=== PATIENT | male | born 1935 | race Caucasian/White ===

== ENCOUNTER 2023-06-03 13:28 | Outpatient (CLI) | payer MEDICARE, SELFPAY ==
--- NOTE | ~2023-06-03 | XR_ITS ---
EXAMINATION: XR lg joint inject/asp w image DATE: 06/03/2023 14:27 INDICATION: Left frozen shoulder TECHNIQUE: A time-out was performed to verify the patient's name, date of , and procedure to b e performed. The procedure including the risks, benefits, and alternatives was discussed with the pat ient. Risks discussed included bleeding and infection. The patient understood the risks and agreed to proceed. The skin overlying the rotator cuff interval of the left glenohumeral joint was prepped an d draped in usual sterile fashion. Anesthetic was administered with 1% lidocaine subcutaneously. A 22 G needle was advanced under fluoroscopic guidance into the joint. Injection of 1 mL of Omnipaque 240 confirmed intra-articular position of the needle. Subsequently, injectate consisting of 5 mm a 4 :1 mixture of 1% lidocaine:80 mg/mL Depo-Medrol for a total dosage of 80 mg Depo-Medrol was instilled . Washout of contrast was seen confirming intra-articular administration. The needle was removed and the entry site was cleaned and dressed. There were no immediate complications. Fluoroscopy exposure time was 0.2 minutes. The total number of images was 2. Total DAP was 0.2 Gycm^2 FINDINGS: Real-time fluoroscopy demonstrates the needle and contrast in the left glenohumeral joint. Patient's pain prior to procedure:3/10. Patient's pain following the procedure: 0/10. IMPRESSION: 1. Successful left glenohumeral joint injection of local anesthetic and steroid with decrease in the patient's presenting pain. Reviewed, dictated and finalized at location A.
== END 2023-06-03 13:29 | disposition home or self-care (01) ==
LOC: ANHIMG 13:34
PROVIDERS: Visit Provider Orthopaedic Surgery
DX: M75.02 Adhesive capsulitis of left shoulder (principal)
CPT/HCPCS: 20610; 77002; J1040; Q9966

== ENCOUNTER 2023-11-13 10:47 | Outpatient (CLI) | payer MEDICARE, SELFPAY ==
--- NOTE | ~2023-11-13 | XR_ITS ---
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 The procedure including the risks, benefits, and alternatives was discussed with the pat ient. Risks discussed included bleeding and infection. The patient understood the risks and agreed to proceed. The skin overlying the rotator cuff interval of the left glenohumeral joint was prepped an d draped in usual sterile fashion. Anesthetic was administered with 1% lidocaine subcutaneously. A 22 G needle was advanced under fluoroscopic guidance into the joint. Injection of 1 mL of Omnipaque 240 confirmed intra-articular position of the needle. Subsequently, injectate consisting of 5 mm a 4 :1 mixture of 1% lidocaine: 80 mg/mL Depo-Medrol was instilled. Washout of contrast was seen confirmi ng intra-articular administration. The needle was removed and the entry site was cleaned and dressed. There were no immediate complications. Fluoroscopy exposure time was 0.2 minutes. The total number of images was 2. Total DAP was 0.335 Gycm^2 FINDINGS: Real-time fluoroscopy demonstrates the needle in the left glenohumeral joint. Patient's doug n prior to procedure:1/10. Patient's pain following the procedure: 0/10. IMPRESSION: 1. Successful left glenohumeral joint injection of local anesthetic and steroid with decrease in the patient's presenting pain. Reviewed, dictated and finalized at location A.
== END 2023-11-13 10:48 | disposition home or self-care (01) ==
LOC: ANHIMG 10:48
PROVIDERS: Visit Provider Physician Assistant Surgical
DX: M19.012 Primary osteoarthritis, left shoulder (principal)
CPT/HCPCS: 20610; 77002; J1010; Q9966

== ENCOUNTER 2024-05-25 13:47 | Outpatient (CLI) | payer MEDICARE, SELFPAY ==
--- NOTE | ~2024-05-25 | XR_ITS ---
EXAMINATION: XR lg joint inject/asp w image DATE: 05/25/2024 14:58 INDICATION: Primary osteoarthritis of the right shoulder presented with right shoulder pain TECHNIQUE: A time-out was performed to verify the patient's name, date of , and procedure to b e performed. The procedure including the risks, benefits, and alternatives was discussed with the pat ient. Risks discussed included bleeding and infection. The patient understood the risks and agreed to proceed. The skin overlying the rotator cuff interval the right glenohumeral joint was prepped and draped in usual sterile fashion. Anesthetic was administered with 1% lidocaine subcutaneously. A 22 G needle was advanced under fluoroscopic guidance into the joint. Injection of 1 mL of Omnipaque 24 0 confirmed intra-articular position of the needle. Subsequently, injectate consisting of 5 mL of a 4:1 mixture of 1% lidocaine: 80 mg/mL Depo-Medrol for a total dosage of 80 mg Depo-Medrol was instill ed. Washout of contrast was seen confirming intra-articular administration. The needle was removed an d the entry site was cleaned and dressed. There were no immediate complications. Fluoroscopy exposur e time was 0.2 minutes. The total number of images was 2. FINDINGS: Real-time fluoroscopy demonstrates the needle in the right glenohumeral joint. Patient's pa in prior to procedure:3/10. Patient's pain following the procedure: 0/10. IMPRESSION: 1. Successful right glenohumeral joint injection of local anesthetic and steroid with decrease in the patient's presenting pain. Reviewed, dictated and finalized at location A. IMPRESSION: 1. Successful right glenohumeral joint injection of local anesthetic and steroi d with decrease in the patient's presenting pain.
--- OUTSIDE RECORDS SUMMARY | 2024-05-25 15:22 | XMS_ITS ---
Author Organization [facility] [address] [employer] Address [address] [place] [address] Care Team Providers Care Latex Spooler Name Role Phone WorkMartin echols DO Primary Care Provider [phone] Active Problems Problem Noted Date Diagnosed Date Allergic rhinitis 05/07/2023 Carcinoma of prostate 05/07/2023 Overview (05/07/2023): Feb 25, 2023 Entered By: TAMELA LEPE Comment: -S/p prostate removal in 1995. 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 Denies fever or chills. Endorses chronic rhonorrhea and dry cough. CTPE w/o findings suggestive of pneumonia. - RVP negative Acute pulmonary embolism wit hout acute cor pulmonale, unspecified pulmonary embolism type 02/16/2023 Assessment & Plan (02/21/2023 2:44 PM SENIOR UX DESIGNER): Found incidentally on CT. He is currently on room air. His reports 5 days of GAUTHIER and 2-3 days of left leg swelling POLYMERIZATION ENGINEER. PERT activated: not a good candidate for thrombectomy given small clot burden and hemodynamic stability; recommend conservative management. Neurosurgery consulted; recommend Neuro consultation for risk assessment for initiating anticoagulation - Neuro consult recs: Brain MRI, see below. Discussed in detail with neurology and neurosurgery, agreed that benefits of anticoagulation outweighed risks, in the setting of multiple PEs and DVTs. Started on heparin gtt. - BLE venous duplex US: bilateral acute DVT - Brain MRI: Right parietal craniotomy and hematoma evacuation with evolving blood products. Right occipital gyral and punctate areas of diffusion restriction in the bilateral cerebellum compatible with acute to subacute infarcts. Scattered parieto-occipital predominant microhemorrhages and siderosis are noted, suggestive of amyloid angiopathy. 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 He reports mild left sided weakness and decreased left sided vision after his ICH. - fall precautions Low back pain 2023 Muscle weakness (generalized) 2023 Nontraumatic intracerebral hemorrhage, unspecifi ed 2023 Assessment & Plan (02/17/2023 5:26 PM SENIOR UX DESIGNER): - see AC discussion as elsewhere Other symptoms and signs inv olving cognitive functions following cerebral infarction 2023 Pain in left hip 2023 Syncope and collapse 2023 Weakness 2023 Intracranial hemorrhage 12/07/2022 Osteoarthritis of left knee 11/26/2022 Left chronic serous otitis media 08/25/2022 Sensorineural hearing loss (SNHL) of both ears 0 08/25/2022 Arthralgia of right knee 07/03/2021 Trochanteric bursitis of left hip 07/03/2021 Trochanteric bursitis of right hip 04/02/2021 Mixed hyperlipidemia 03/15/2019 Capsulitis of left foot 12/15/2017 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 Plan: - lisinopril 20 mg nightly - lisinopril 5 mg qAM PRN for SBP > 160 Mitral valve prolapse 04/14/2006 Overview (2023): MILD/ SEEN ON ECHO 03/14/1997 Current Treatment and Therapy Plans No current plan information found. Past Treatment and Therapy Plans No past plan information found. Lifetime Dose Tracking * Chemical Lifetime Dose Automatic Entry Manual Entr y Fluoro Time 2.8 minutes 2.8 minutes 0 minutes Air kerma at the reference point (Ka,r) 9.4 mGy 9 .4 mGy 0 mGy DLP 5,098 mGycm 5,098 mGycm 0 mGycm
--- OUTSIDE RECORDS SUMMARY | 2024-05-25 15:22 | XMS_ITS | Referral Summary ---
Author Organization [facility] [address] [employer] Address [address] [place] [address] Care Team Providers Care Senior Linux Systems Administrator Name Role Phone Martin Olivares DO Primary Care Provider [phone] Allergies Active Allergy Reactions Criticality Noted Date Comments Enalapril Other (See comments),Unknown Low 08/03/2003 Losartan Dizziness,Other (See comments) Low 04/14/2006 Losartan-Hydrochlorothiazid e Other (See comments) Low 02/02/2023 Medications acetaminophen (TYLENOL) 325 mg tablet Take 2 tablets (650 mg total) by mouth every 6 (six) hours as needed Active lisinopriL (PRINIVIL,ZESTR IL) 30 mg tablet Take 0.5 tablets (15 mg total) by mouth nightly 3 Active docusate sodium (COLACE) 100 mg capsuleIndicati ons:constipatio n,Stool Softener Take 1 capsule (100 mg total) by mouth 2 (two) times a day 3 Active lisinopriL (PRINIVIL,ZESTR IL) 5 mg tablet Take 2 tablets (10 mg total) by mouth daily as needed (takes in AM if BPs are high) Active apixaban (ELIQUIS) 2.5 mg tablet Take 1 tablet (2.5 mg total) by mouth 2 (two) times a day 60 tablet 3 Active meclizine (ANTIVERT) 25 mg tablet Take 1 tablet (25 mg total) by mouth 3 (three) times a day as needed for dizziness Active fluticasone (VERAMYST) 27.5 mcg/actuation nasal sprayIndication s:Allergic Rhinitis Administer 2 sprays into each nostril as needed Active metoprolol tartrate (LOPRESSOR) 25 mg immediate release tablet Take 0.5 tablets (12.5 mg total) by mouth 2 (two) times a day 4 Active ketorolac (ACULAR) 0.5 % ophthalmic solution Administer 1 drop into affected eye(s) 3 (three) times a day 4 Active prednisoLONE acetate (PRED FORTE) 1 % ophthalmic suspension Administer 1 drop into affected eye(s) 3 (three) times a day 4 Active Active Problems Problem Noted Date Diagnosed Date [...] Assessment & Plan (02/18/2023 11:10 AM SENIOR RADIATION THERAPIST): Present for 2 days STAGE MANAGER. Denies fever or chills. Endorses chronic rhonorrhea and dry cough. CTPE w/o findings suggestive of pneumonia. - RVP negative Acute pulmonary embolism wit hout acute cor pulmonale, unspecified pulmonary embolism type 02/16/2023 Assessment & Plan (02/21/2023 2:44 PM SENIOR RADIATION THERAPIST): Found incidentally on CT. He is currently on room air. His reports 5 days of GUATHIER and 2-3 days of left leg swelling STAGE MANAGER. PERT activated: not a good candidate for [...] health PT/OT -> patient's son, head of at [place], declined - continue heparin gtt, monitor for [...] Assessment & Plan (02/17/2023 5:26 PM SENIOR RADIATION THERAPIST): Normally ambulates w/ a walker. He reports mild left sided weakness and decreased left sided vision after his ICH. - fall precautions Low back pain 2023 Muscle weakness (generalized) 2023 Nontraumatic intracerebral hemorrhage, unspecifi ed 2023 Assessment & Plan (02/17/2023 5:26 PM SENIOR RADIATION THERAPIST): - see AC discussion as elsewhere Other [...] Assessment & Plan (02/19/2023 11:42 AM SENIOR RADIATION THERAPIST): Per pt's , he takes lisinopril 20 mg at night and 5 mg in the AM as needed for high BP. Plan: - lisinopril 20 mg nightly - lisinopril 5 mg qAM PRN for SBP > 160 Mitral valve prolapse 04/14/2006 Overview (2023): MILD/ SEEN ON ECHO 03/14/1997 Immunizations Immunization Administration Dates Next Due Influenza, Quadrivalent, Hig h Dose, Preservative Free, Intrr 12/23/2022,12/16/2021,12/28/2020 Influenza, Quadrivalent, Spl it, Preservative Free, Intramuscular 01/03/2015,01/03/2014 Influenza, Trivalent, High D ose, Split, Preservative Free, Intramuscular 01/11/2019 Influenza, Unspecified 01/13/2020,2017,01/03/2015,01/03,01/11/2013,12/30/2011 Moderna SARS-CoV-2 Monovalen t Vaccination (12+ YRS) 12/12/2021 Pneumococcal Conjugate PCV 13 01/03/2015 Pneumococcal Conjugate Pcv20 12/27/2022 Pneumococcal Polysaccharide PPV23 02/16/2018 Tdap 01/12/2023 ZOSTER Recombinant 02/25/2023 Social History Tobacco Use Types Packs/Day Years Used Date Smoking Tobacco: Never Smokeless Tobacco: Never Tobacco Cessation:Counseling Given: Not Answered AUDIT-C Answer Date Recorded Q1: How often do you have a drink containing alc ohol? Monthly or less 2023 Q2: How many drinks containi ng alcohol do you have on a typical day when you are drinking? 1 or 2 2023 Q3: How often do you have si x or more drinks on one occasion? Never 2023 Personal Safety Answer Date Recorded Have you ever been in or are you currently in a harmful physical or emotional relationship or is someone making you feel afraid or unsafe? Denies 02/16/2023 Sex and Gender Information Value Date Recorded Sex Assigned at Not on file Legal Sex Male 7:16 PM SENIOR RADIATION THERAPIST Gender Identity Not on file Sexual Orientation Not on file Last Filed Vital Signs Vital Sign Reading Time Taken Comments Blood Pressure 160/86 11/03/2023 11:02 AM CDT Pulse 66 11/03/2023 11:02 AM CDT Temperature 36.4 C (97.5 F) 02/21/2023 8:35 AM SENIOR RADIATION THERAPIST Respiratory Rate 18 03/26/2023 9:34 AM SENIOR RADIATION THERAPIST Oxygen Saturation 97% 02/21/2023 8:35 AM SENIOR RADIATION THERAPIST Inhaled Oxygen Concentration - - Weight 77.1 kg (170 lb) 11/03/2023 11:02 AM CDT Height 175.3 cm (5' 9 ) 11/03/2023 11:02 AM CDT Body Mass Index 25.1 11/03/2023 11:02 AM CDT Plan of Treatment Not on file Medical Devices Implanted Type Area Land Inspector Device Identifier Shelf Expiration Date Model / Serial / Lot Nani Craniomaxillofac ial Duramatrix-Onlay Plus 2x2in Regeneration Membrane Patch Dural [id number] - [id number] Implanted:Qty: 1 on 12/08/2022 by Tejinder Foreman MD at [facility] Right: Cranial Nani Craniomaxillofacia l [id number] 06/06/2025 [id number] / / [id number] [place] Craniomaxillofac ial Un3 1.5mm 4mm Self Drill Craniomaxillofac ial Screw Bone [id number] - [id number] Implanted:Qty: 13 on 12/08/2022 by Tejinder Foreman MD at [facility] Right: Cranial Nani Craniomaxillofacia l 12/08/2024 [id number] / / [place] Craniomaxillofac ial Williams Neuro Iii 10mm Tab Craniomaxillofac ial Low Profile [id number] - [id number] Implanted:Qty: 1 on 12/08/2022 by Tejinder Foreman MD at [facility] Right: Cranial Nani Craniomaxillofacia l 12/08/2024 [id number] / / [place] Craniomaxillofac ial 2x2 Hole Box Tab Large Plate Bone [id number] - [id number] Implanted:Qty: 2 on 12/08/2022 by Tejinder Foreman MD at [facility] Right: Cranial [place] Craniomaxillofacia l 12/08/2024 [id number] / / Insurance COMMERCIAL GENERIC MEDICARE [facility] MEDICARE COMMERCIAL GENERIC [place] [facility] Advance Directives For more information, please contact: [phone] Documents on File Type Date Recorded Patient Pyridine Operator Expl anation ADVANCE DIRECTIVE 01/08/2023 12:17 AM ADVA NCE DIRECTIVE ADVANCE DIRECTIVE 12/11/2022 11:12 PM ADVA NCE DIRECTIVE * Full Code (Latest Code Status on File) Date Activated Date Inactivated Comments 02/17/2023 5:17 PM 02/21/2023 5:14 PM * LIMITED - No CPR Date Activated Date Inactivated Comments 12/07/2022 9:34 PM 12/17/2022 4:47 PM Question Answer Comments Provide aggressive medical m anagement before a full cardiopulmonary arrest occurs. Use antibiotics, IV Fluids, and medical treatment unless specifically selected below: No intubation Care Teams Senior Linux Systems Administrator Relationship Specialty Start Date End Date Martin Olivares DO [address] [place] [address] PCP - General Family Medicine 08/06/22
--- OUTSIDE RECORDS SUMMARY | 2024-05-25 15:22 | XMS_ITS | Clinical Summary ---
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 Denies fever or chills. Endorses chronic rhonorrhea and dry cough. CTPE w/o findings suggestive of pneumonia. - RVP negative Acute pulmonary embolism wit hout acute cor pulmonale, unspecified pulmonary embolism type 02/16/2023 Assessment & Plan (02/21/2023 2:44 PM MIDDLE SCHOOL HUMANITIES TEACHER): Found incidentally on CT. He is currently on room air. His reports 5 days of GAUTHIER and 2-3 days of left leg swelling FRONT FACER. PERT activated: not a good candidate for [...] PT/OT -> patient's son, head of at [place], declined - continue heparin gtt, monitor for [...] 2023 Assessment & Plan (02/17/2023 5:26 PM MIDDLE SCHOOL HUMANITIES TEACHER): Normally ambulates w/ a walker. He reports mild left sided weakness and decreased left sided vision after his ICH. - fall precautions Low back pain 2023 Muscle weakness (generalized) 2023 Nontraumatic intracerebral hemorrhage, unspecifi ed 2023 Assessment & Plan (02/17/2023 5:26 PM MIDDLE SCHOOL HUMANITIES TEACHER): - see AC discussion as elsewhere Other [...] 04/14/2006 Assessment & Plan (02/19/2023 11:42 AM MIDDLE SCHOOL HUMANITIES TEACHER): Per pt's , he takes lisinopril 20 [...] PPV23 02/16/2018 Tdap 01/12/2023 ZOSTER Recombinant 02/25/2023 Surgical History Surgery Date Site/Laterality Comments PROSTATE SURGERY Medical History Medical History Date Comments Allergic rhinitis Cataract Hypertension Family History Medical History Relation Name Comments Hypertension Father Cancer Mother Hypertension Mother Hypertension Sister Relation Name Status Comments Father Mother Sister Social History Tobacco Use Types Packs/Day Years [...] on file Legal Sex Male 7:16 PM MIDDLE SCHOOL HUMANITIES TEACHER Gender Identity Not on file Sexual Orientation Not on file Obstetrics History Last Filed Vital Signs Vital Sign Reading Time Taken Comments Blood Pressure 160/86 11/03/2023 11:02 AM CDT Pulse 66 11/03/2023 11:02 AM CDT Temperature 36.4 C (97.5 F) 02/21/2023 8:35 AM MIDDLE SCHOOL HUMANITIES TEACHER Respiratory Rate 18 03/26/2023 9:34 AM MIDDLE SCHOOL HUMANITIES TEACHER Oxygen Saturation 97% 02/21/2023 8:35 AM MIDDLE SCHOOL HUMANITIES TEACHER Inhaled Oxygen Concentration - - Weight 77.1 kg (170 lb) 11/03/2023 11:02 AM CDT Height 175.3 cm (5' 9 ) 11/03/2023 11:02 AM CDT Body Mass Index 25.1 11/03/2023 11:02 AM CDT Plan of Treatment Health Maintenance Due Date Last Done Comments Depression Screening 1935 Hepatitis B Screening 1953 Well Visit 65+ 02/06/2000 Covid-19 Vaccine (2023-2 5 season) 2023 12/22/2022, 12/12/2021, 12/12/2021, Additional history exists Influenza Vaccine (#1) 2023 , 12/16/2021, 12/28/2020, Additional history exists Fall Risk Assessment 02/22/2024 02/21/2023 DTaP/Tdap/Td Vaccine (2 - Td or Tdap) 01/12/2033 01/12/2023 Pneumococcal vaccine 65+ Completed 023, 02/16/2018, 01/03/2015 Zoster Vaccine Completed 08/21/2023, 02/25/2023 Medical Devices Implanted Type Area Skills Trainer Device Identifier Shelf Expiration Date Model / Serial / Lot [place] Craniomaxillofac ial Duramatrix-Onlay Plus 2x2in Regeneration Membrane Patch Dural Dmop22 - [id number] Implanted:Qty: 1 on 12/08/2022 by Tejinder Foreman MD at [facility] Right: Cranial Nani Craniomaxillofacia l [id number] 06/06/2025 DMOP22 / / [id number] [place]ani Craniomaxillofac ial Un3 1.5mm 4mm Self Drill Craniomaxillofac ial Screw Bone [id number] - [id number] Implanted:Qty: 13 on 12/08/2022 by Tejinder Foreman MD at [facility] Right: Cranial [place] Craniomaxillofacia l 12/08/2024 [id number] / / [place] Craniomaxillofac ial [place] Neuro Iii 10mm Tab Craniomaxillofac ial Low Profile [id number] - [id number] Implanted:Qty: 1 on 12/08/2022 by Tejinder Foreman MD at [facility] Right: Cranial Nani Craniomaxillofacia l 12/08/2024 [id number] / / [place] Craniomaxillofac ial 2x2 Hole Box Tab Large Plate Bone [id number] - [id number] Implanted:Qty: 2 on 12/08/2022 by Tejinder Foreman MD at [facility] Right: Cranial [place] Craniomaxillofacia l 12/08/2024 [id number] / / Insurance COMMERCIAL GENERIC MEDICARE [facility] MEDICARE COMMERCIAL GENERIC [facility] Advance Directives For more information, please contact: [phone] Documents on File Type Date Recorded Patient Manager Neonatal Expl anation ADVANCE DIRECTIVE 01/08/2023 12:17 AM [...] specifically selected below: No intubation Care Teams Cook Dessert Relationship Specialty Start Date End Date Martin Olivares DO [address] [facility] [address] [place] [address] PCP - General Family Medicine 08/06/22
--- OUTSIDE RECORDS SUMMARY | 2024-05-25 15:22 | XMS_ITS | Data Portability ---
Author Organization [place] - [facility], Main Office Address [address] [place] [address] Care Team Providers Care Underwriting Support Specialist Name Role Phone WORKJAY MILLER Primary Care Provider WORKMANJAY Referring Provider [phone] Assessment Encounter Date Assessment Date Assessment LastModified by Organization Details LastModified Time 09/19/2022 09/19/2022 HPI: Patient returns. He is here wanting cortisone injection right knee and had right lateral hip. He had injections in April this year. He is getting ready to go on an extended trip to [place] for 19 days he has been having some soreness in both areas. [employer] walks work well for him. He has a known medial meniscus tear in the right knee as well some early osteoarthritis the patellofemoral joint. 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 Physical exam: 87-year-old male very alert pleasant. He appears younger than his stated age. He has moderate pain with patellofemoral grind in the right knee. Range of motion is from 0-135 degrees. Mild tenderness over the medial joint line. He has moderate tenderness over the lateral hip. He has normal strength with abductor testing lateral position. ChloraPrep was used on skin 20 mg Kenalog and 3 cc of 0.5% ropivacaine was injected into the right knee and right trochanteric bursa. 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 Shots have worked well for him. He has been taking ibuprofen 400 mg once a day intermittently and I have recommended he may want to take this on a more regular basis talked about increasing it twice a day to see if this will help with his symptoms. He has been getting some anterior knee pain in the left knee and asked about getting an injection before his trip. We will schedule see him back next at that time we will do an injection in the left knee. 20 minutes was spent in treatment patient more than half this bwbk-rd-jqab conversation [email or web address] Not available 09/19/2022 13:26:58 11/26/2022 11/26/2022 HPI: Patient returns. He came in today is left knee has been bothering him. He went on an extended trip to [place] do lot of walking. He was walking up a hill and he started to have pain in the anterior lateral aspect the knee. He has had continued pain since then. This has been going on for about a month. Chief complaint is he has pain getting up from seated position or pain going up a step. I and again he points to the anterior lateral aspect of the knee where he feels it. He has been taking some Tylenol without any improvement of his symptoms. Patient has had previous x-rays of the left knee which shows some very mild narrowing of the medial compartment. He has a history of known patellofemoral irritability of the right knee and most likely some early patellofemoral osteoarthritis in the right. He came in today requesting cortisone injection left knee. Physical exam: Patient walking relatively well. He has trace effusion left knee. Range of motion is from 0-140 degrees. He has mild tenderness to palpation of the anterior lateral joint space. He also has hmfs-hq-pcrjhswh pain with palpation of the lateral border of the patella. Hip range of motion is full without discomfort. There is no medial joint line tenderness. No swelling in either lower extremity. ChloraPrep was used on skin 20 mg Kenalog and 3 cc of 0.5% ropivacaine was injected into the left knee. Risk of infection discussed. Impression: 87-year-old male who has irritability in the left knee from a climbing an incline. Symptoms seem to correlate to the patellofemoral joint and anterior lateral joint line. He is 87 and again he wished to have a cortisone injection in the knee which I think is reasonable try to get things quiet down. He takes minimal medications we also talked about amlf-daf-szbxrrv anti-inflammatori es which he can experiment with if he feels he needs him. Hopefully the shot will help. I will see him back as needed. 20 minutes was spent in treatment patient more than half of this in hdxm-ih-cjsa conversation [email or web address] Not available 11/26/2022 14:06:34 05/20/2023 05/20/2023 HPI: Patient returns. Last time I saw him was in November of last year at that time he had a cortisone injection in the right knee. 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 At this point he is on Eliquis. He has regained most of the function back in his left side. He still has some issues with his peripheral vision. Patient's chief complaint with his left shoulder is that it has gotten very stiff and very painful with motion as well as use. They have been trying to do therapy on this but he is finding it difficult because it is painful for them to try to work on range of motion exercises. He did regain sensation and motor function to both upper and lower extremity. He still has some issues with his balance. Patient is also complaining of pain in the right anterior knee. This is commonly where he felt the prior when I have given him injections. This has gotten worse since the stroke and I think that is because this was his strong leg particularly with getting up from seated position and is most likely overload the patellofemoral joint causing his symptoms. At this point patient is unable take anti-inflammatori es because he is on Eliquis. Physical exam: 88-year-old male alert pleasant. He is talking very well today. He has active elevation left shoulder to 110 external rotation 50 and internal rotation is to the PSIS. He has pain with range of motion. No effusion about the shoulder no tenderness about shoulder. He has good strength with external rotation as well as abduction. His right knee he has moderate pain with patellofemoral grind. Minimal effusion in the knee. Range of motion is from 7-135 degrees. He has no increased swelling in either lower extremity. He is wearing René does today. After alcohol prep 20 mg Kenalog and 3 cc of 0.5% ropivacaine was injected into the right knee. Impression: Patient has anterior knee pain right knee again I think that is because from his recovery is right leg was his strong leg and he relied on it to get up from seated positions which overload of the patellofemoral joint. He also has a history of patellofemoral pain in that knee, shots have always worked well for him and he wished to have 1 today. 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 I have recommended having a fluoroscopic guided injection into the shoulder joint which hopefully will help with his symptoms. He is in therapy at this point I recommend that he stop doing any therapy on the shoulder until the injection gives him some good benefit from his pain and then once this has been achieved they should work on stretching out to get his full range of motion back. He has no arthritic changes in the left shoulder joint and he has good strength so I think his rotator cuff is intact. I have given him the instruction order sheet for frozen shoulder to give to the therapist so they know to work on stretching exercises. I have given him the order for the injection in the shoulder to be done at the hospital under fluoroscopic guidance. I will see him back in a month for re-evaluation. 40 minutes was spent in treatment patient more than half of this in tgbb-mc-jstf conversation [email or web address] Not available 05/20/2023 16:09:45 06/22/2023 06/22/2023 HPI: Patient returns. He is here for follow-up of his left frozen shoulder. He had the cortisone injection under fluoroscopic guidance as well as physical therapy. He has noted good improvement of his symptoms in the shoulder. He still has pain with range of motion particularly at the full stretching. He has no rest pain at this point. He continues doing his exercises at home on a daily basis. Patient has 2nd complaint is that he has been having some anterior knee pain in the left knee. This started several weeks ago. He is pain getting up from seated position. His states that he does complain of left knee being problematic on a regular basis. He has same type of anterior knee pain on the right that I have seen him for multiple times in the past. Cortisone injections seem to work well. Patient would like to have a shot in the left knee today. Physical exam 88-year-old male he has active elevation left shoulder to 135 external rotation is to 60 internal rotation is to T12. He has protracted shoulders. He has pain at full elevation and external rotation. There has no pain with internal rotation. His left knee has moderate pain patellofemoral grind. He is mild tenderness over the anterior medial joint line. No definite effusion in the knee. Range motion is from 0-135 degrees. After ChloraPrep was used on skin 20 mg Kenalog and 3 cc of 0.5% ropivacaine was injected into the left knee. Impression: Patient's left frozen shoulder is improving. I encouraged him to continue to work on his home exercise program to get full function and motion back in the shoulder without any discomfort. I discussed with his as well that if he stops before he has full resolution of the frozen shoulder than the frozen shoulder may recur and he will have to go through this process again. With regard to the knee he has some anterior knee pain and this is probably his inability to use left shoulder to push up from a seated position which would overload the knee cap. Shots have always worked well for the right knee hopefully will work equally as well for the left. At this point we will see him back as needed. 20 minutes was spent treatment patient more than half of this in gbbq-zw-axln conversation [email or web address] Not available 06/22/2023 15:38:46 Plan of Treatment Reminders Order Date Submit Date Provider Last Modified By Organization Details Last Modified Time Details Appointments None recorded. Lab None recorded. Referral None recorded. Procedures injection/ aspiration joint/burs a (PROC) - in office procedure, administer ed by provider 2023 024 [email or web address] In-Office Order, Internal Use Only DO Not Attach Compendium DO Not Attach Compendium, Do Not Delete/merge, [id number] 15:10:45 injection/ aspiration joint/burs a (PROC) - in office procedure, administer ed by provider 2023 024 In-Office Order, Internal Use Only DO Not Attach Compendium DO Not Attach Compendium, Do Not Delete/merge, [id number] 4 15:09:17 injection/ aspiration joint/burs a (PROC) - in office procedure, administer ed by provider 2022 023 [email or web address] In-Office Order, Internal Use Only DO Not Attach Compendium DO Not Attach Compendium, Do Not Delete/merge, [id number] 3 13:48:15 injection/ aspiration joint/burs a (PROC) - in office procedure, administer ed by provider 2022 023 [email or web address] In-Office Order, Internal Use Only DO Not Attach Compendium DO Not Attach Compendium, Do Not Delete/merge, [id number] 3 12:04:45 injection/ aspiration joint/burs a (PROC) - in office procedure, administer ed by provider 2022 023 In-Office Order, Internal Use Only DO Not Attach Compendium DO Not Attach Compendium, Do Not Delete/merge, [id number] 3 12:04:45 Surgeries None recorded. Imaging XR, shoulder, 2 or more view 2023 024 [email or web address] [facility] [place], [address], [place], [address], 4 16:11:07 XR, knee 2023 024 [email or web address] [facility] [place], [address], [place], [address], 4 16:11:07 Medication Orders Marcaine (PF) 0.5 % (5 mg/mL) injection solution [address] [facility], [address] [place] [address], [id number], 4 15:28:45 Kenalog 10 mg/mL suspension for injection [address] [facility], [address] [place] [address], [id number], 4 15:28:45 Kenalog 10 mg/mL suspension for injection [address] [facility], [address] [place] [address], [id number], 4 16:10:04 ropivacain e (PF) 5 mg/mL (0.5 %) injection solution [address] [facility] [address] [facility], [address], [place], [place], [id number], 4 16:10:04 Kenalog 10 mg/mL suspension for injection [address] [facility], [address], [place], [place], [id number], 4 14:20:35 ropivacain e (PF) 5 mg/mL (0.5 %) injection solution [address] [facility], [address], [place], [place], [id number], 4 14:22:00 Kenalog 10 mg/mL suspension for injection [address] [facility], [address], [place], [place], [id number], 4 14:20:35 ropivacain e (PF) 5 mg/mL (0.5 %) injection solution [address] [facility], [address], [place], [place], [id number], 4 14:22:00 Kenalog 10 mg/mL suspension for injection [address] [facility] [address] [facility], [address] [place] [place], [id number], 4 14:20:35 ropivacain e (PF) 5 mg/mL (0.5 %) injection solution [address] [facility] [address] [facility], [address], [place], [place], [id number], 4 14:22:00 Patient TargetsNo targets recorded. Patient InstructionsNo instructions recorded. Reason for Referral None Reported. Results Created Date Observation Date Name Description Value Unit Range Abnormal Flag Note LastModifiedBy Organization Detail LastModifiedTime 04/30/19 23 04/30/2022 XR, knee, 3 view No observ ation record ed. [id number] [facility] [place] [address], [place], [address], 05/07/2022 23:05:27 05/20/19 24 XR, knee No observ ation record ed. [email or web address] [facility] [place] [address], [place], [address], 05/20/2023 16:05:16 05/20/19 24 XR, shoul jimmie, 2 or more view No observ ation record ed. [email or web address] [facility] [place] [address], [place], [address], 05/20/2023 16:05:04 06/03/19 24 06/03/2023 injec tion/ aspir ation joint /burs a (PROC ) No observ ation record ed. In-Office Order Internal Use Only DO Not Attach Compendium DO Not Attach Compendium, Do Not Delete/merge, [id number] 06/04/2023 08:19:06 Result Notes None recorded. Problems Name Problem SNOMED Code Status Onset Date Resolution Date Notes Provider Name and Address Organization Details Recorded Time Trochanter ic bursitis of left hip 3818938635969 03 Active 2021 Not Available [facility] 3 23:03:25 Trochanter ic bursitis of right hip 4829199668645 00 Active 2021 Not Available [facility] 3 23:03:25 Osteoarthr itis of right knee joint 2262656438354 00 Active 2022 Not Available [facility] 3 23:03:25 Pain of right knee joint 4425425222754 00 Active 2021 Not Available [facility] 3 23:03:25 Pain in right hip joint 2356247611517 02 Active 2022 Terrie Liz RMJuan Carlos null, [facility] [employer] [facility] 3 12:02:45 Osteoarthr itis of left knee joint 3661115543194 09 Active 2022 Terrie Liz RMJuan Carlos null, [facility] 3 13:46:47 Pain of left shoulder joint 2588852791764 9109 Active 2023 FLOR Billy, [facility] [employer] [facility] 4 14:27:00 Problem Notes None recorded. Procedures Surgical History Date Name Laterality Status Provider Name and Address Organization Details Recorded Time Prostate completed Not Available [facility] 23:02:35 Imaging Results Imaging Date Name Status LastModified by [email or web address] [facility] Details LastModified Time 04/30/2022 XR, knee, 3 view completed [id number] [facility] [place] [address] [facility] [address], [place], [address], 05/07/2022 23:05:27 05/20/2023 XR, knee completed [email or web address] [facility] [place] [address] [facility] [address] [address], [place], [address], 05/20/2023 16:05:16 05/20/2023 XR, shoulder, 2 or more view completed [email or web address] [facility] [place] [address] [facility] [address], [place], [address], 05/20/2023 16:05:04 06/03/2023 injection/ aspiration joint/burs a (PROC) completed [email or web address] In-Office Order Internal Use Only DO Not Attach Compendium DO Not Attach Compendium, Do Not Delete/merge, [id number] 06/04/2023 08:19:06 Procedure Notes None recorded. Medical Equipment None Reported. Allergies Allergen ID Allergen Name Allergen Category Reaction Reaction Severity Criticality Documentation Date Start Date Code Code System Note Provider Name and Address Organization Details Recorded Time 65345 hydrochlo rothiazid e / losartan medicatio n Not available Not available Not available 05/07/2022 25698 9 RxNorm faint Madeleine Carri, CLIMATOLOGY PROFESSOR null, [place] - [facility] 4 14:20:04 73117 Cozaar medicatio n Not available Not available Not available 05/07/2022 36946 8 RxNorm faint Madeleine Carri, CLIMATOLOGY PROFESSOR null, [place] - [facility] 4 14:19:58 Medications Name Sig Start Date Stop Date Status Note LastModified by Organization Details LastModified Time iheal covid-19 rapid test 05/19 completed Not Available Not Available Not Available atorvasta tin 10 mg tablet 10/31 completed Not Available Not Available Not Available azithromy esteban 250 mg tablet 04/30 completed Not Available Not Available Not Available metoprolo l succinate ER 50 mg tablet,ex tended release 24 hr 10/04 completed Not Available Not Available Not Available lisinopri l 20 mg tablet Take 1 tablet every day by oral route at bedtime. active Not Available Not Available No t Available bupivacai ne HCl 0.5 % (5 mg/mL) injection solution In office injectio n administ ered by the provider 04/30 completed Not Available Not Available Not Available amlodipin e 5 mg tablet 09/19 completed Not Available Not Available Not Available ofloxacin 0.3 % ear drops active Not Available Not Available Not Available Kenalog 10 mg/mL suspensio n for injection Take 20 mg by injectio n route. 2023 active ND: [phone] Not Available Not Available Not Available promethaz ine-pheny lephrine- codeine 6.25 mg-5 mg-10 mg/5 mL oral syrup Take 5 mL every 4 hours by oral route. 09/19 completed Not Available Not Available Not Available lisinopri l 10 mg tablet Take 1 tablet every day by oral route. active take one tab or 1/2 tab every morning Not Available Not Available Not Available prednison e 50 mg tablet 04/30 completed Not Available Not Available Not Available lisinopri l 30 mg tablet 05/19 completed Not Available Not Available Not Available lisinopri l 5 mg tablet 10/04 completed Not Available Not Available Not Available levofloxa esteban 500 mg tablet 07/25 completed Not Available Not Available Not Available lisinopri l 40 mg tablet 05/19 completed Not Available Not Available Not Available fluoxetin e 20 mg capsule Take 1 capsule every day by oral route. active Not Available Not Available No t Available Marcaine (PF) 0.5 % (5 mg/mL) injection solution Take 15 mg by injectio n route. 2023 active Not Available Not Available Not Avai lable chlorhexi dine gluconate 0.12 % mouthwash 07/25 completed Not Available Not Available Not Available acetamino phen 2 or 3 times daily active Not Available Not Available No t Available aspirin 10/04 completed Not Available Not Available Not Available lidocaine (PF) 10 mg/mL (1 %) injection solution In office injectio n administ ered by the provider active [facility]: [phone] 6 Not Available Not Available Not Available lidocaine (PF) 5 mg/mL (0.5 %) injection solution In office injectio n administ ered by the provider active Not Available Not Available No t Available melatonin 5 mg capsule Take by oral route. active Not Available Not Available No t Available ropivacai ne (PF) 5 mg/mL (0.5 %) injection solution Take 3 mL by injectio n route. 2023 active [facility] 55138-08 4- Not Available Not Available Not Available Eliquis 2.5 mg tablet Take 1 tablet twice a day by oral route. active Not Available Not Available No t Available Vitals Date Recorded Body height Provider Name an d Address Organization Details Last Updated DateTime 04/30/2022 175.26 cm Not Available [facility] 23:02:43 Date Recorded Body height Provider Name an d Address Organization Details Last Updated DateTime 09/19/2022 175.26 cm ANNETTE Cannon [facility] [employer] 09/19/2022 12:01:59 Date Recorded Body height Provider Name an d Address Organization Details Last Updated DateTime 11/26/2022 175.26 cm ANNETTE Cannon [facility] [employer] [facility] 11/26/2022 13:46:01 Date Recorded Body height Body mass index (BMI) Body weight Provider Name and Address Organization Details Last Updated DateTime 05/20/2023 175.26 cm 24.7 kg/m2 78088.93 g Madeleine [facility] [employer] [facility] 05/20/2023 14:28:11 Date Recorded Body height Provider Name an d Address Organization Details Last Updated DateTime 06/22/2023 175.26 cm Lorri Mason [facility] 06/22/2023 14:45:12 Social History Question Answer Notes LastModified by Organizat ion Details LastModified Time Tobacco Smoking Status Never Smoker Not Available [facility] 05/07/2022 23:02:14 What Is Your Level Of Alcohol Consumption? None Information not available 05/20/2023 Sex: Unknown Functional Status None recorded. Mental Status None recorded. Family History Relationship Description Onset Age of this Age Resolved Age Notes LastModified by Organization Details LastModified Time Mother Family history of malignant neoplasm [id number] Not available 05/07/2022 23:02:36 Father Hypertensive disorder [email or web address] Not available 2023 14:24:11 Father Heart disease [email or web address] Not available 2023 14:24:02 Father Kidney disease [email or web address] Not available 2023 14:24:52 Mother Hypertensive disorder [email or web address] Not available 2023 14:24:15 Unspecified Relation Diabetes mellitus 2 childr en Not available 05/20/2023 14:24:42 Medical History Condition Response BLINDNESS N KIDNEY STONES N MRSA N CARPAL TUNNEL SYNDROME N LUNG DISEASE/DISORDER N HISTORY OF DRUG ABUSE N RADIATION / CHEMOTHERAPY N COPD N SPORTS INJURY N ANKLE PAIN N BLOOD DISEASES N SCHIZOPHRENIA N SHOULDER PAIN N BOWEL PROBLEMS N DEPRESSION (INCLUDING POST ) N STROKE/TIA Y ULCERS N KNEE PAIN N BENIGN PROSTATIC HYPERPLASIA N OBESITY N GERD/NAUSEA N ANEURYSM N URINARY/BLADDER/KIDNEY PROBLEMS N CORONARY ARTERY DISEASE (CAD) N ADDICTION CONCERNS N USE OF BLOOD THINNERS Y SKIN PROBLEMS N EMPHYSEMA N MUSCLE,JOINT OR BONE PROBLEMS N DVT N STOMACH ULCERS N BLOOD CLOTS Y USE OF NSAIDS N CONCUSSION OR SPINAL TRAUMA N NEUROPATHY N AIDS/HIV N FRACTURES N HYPERTENSION Y ELBOW PAIN N TOURETTE'S N Metal allergy N ANXIETY DISORDER N BLOOD TRANSFUSION N ANEMIA/BLOOD DISORDER N BIPOLAR DISORDER N BRONCHITIS N OSTEOARTHRITIS N TUBERCULOSIS N FOOT PROBLEM N HEART VALVE DISORDERS N ALLERGIES/HAYFEVER N SOFT TISSUE INJURY N INFECTIOUS DISEASE N HEART ARRHYTHMIA N INSOMNIA N HIGH CHOLESTEROL / HYPERLIPIDEMIA N RHEUMATOID ARTHRITIS N EDEMA N CHRONIC PAIN SYNDROME N CAROTID BLOCKAGE N BACK / NECK PROBLEMS N HAVE YOU BEEN HOSPITALIZED OR SEEN IN [facility] IN THE PAST YEAR ? N BURSITIS N HERNIATED DISC N DIALYSIS N FIBROMYALGIA N OSTEOPOROSIS Y ARTHRITIS N NO SIGNIFICANT PAST MEDICAL HISTORY N PERIPHERAL NEUROPATHY N DIABETES, TYPE N HEARTBURN / REFLUX N HEPATITIS / LIVER DISEASE N GOUT N ALZHEIMER'S DISEASE N SLEEP DISORDER N HERPES N HEADACHES/MIGRAINES N SEIZURES/EPILEPSY N VASCULAR DISEASE N Blood Disorder N HIP PAIN N DIZZINESS N HEAD TRAUMA OR INJURY N HEART DISEASE/HEART PROBLEMS N MULTIPLE SCLEROSIS N CANCER: SPECIFY N CARDIAC ARRHYTHMIA N ANESTHESIA COMPLICATIONS N ATRIAL FIBRILLATION N AUTOIMMUNE DISEASE N Past Encounters Encounter ID Performer Location Encounter Start Date Encounter Closed Date Diagnosis/Indication Diagnosis SNOMED-CT Code Diagnosis ICD10 Code Diagnosis Note [id number] [facility] [place] [address] [facility] [address] [place] [address] 07/25/2020 00:00:00 07/25/2020 16:15:33 [id number] [facility] [place] [address] [facility] [address] [place] [address] 08/24/2020 00:00:00 08/24/2020 16:06:11 [id number] [facility] [place] [address] [facility] [address] [place] [address] 09/28/2020 00:00:00 10/08/2020 13:59:11 [id number] [facility] [place] [address] [facility] [address] [place] [address] 10/31/2020 00:00:00 10/31/2020 11:10:55 [id number] [facility] [place] [address] [facility] [address] [place] [address] 04/03/2021 00:00:00 04/03/2021 16:26:46 [id number] [facility] [place] [address] [place] [address] 07/03/2021 00:00:00 07/03/2021 16:45:51 [id number] [facility] [place] [address] [place] [address] 10/04/2021 00:00:00 10/04/2021 10:04:29 [id number] [facility] [place] [address] [place] [address] 12/18/2021 00:00:00 12/18/2021 14:40:22 [id number] [facility] [place] [address] [place] [address] 04/04/2022 00:00:00 04/04/2022 16:30:49 [id number] [facility] [place] [address] [place] [address] 04/30/2022 00:00:00 04/30/2022 12:02:57 [id number] JAMEL Lafleur [facility] [place] [address] [place] [address] 09/19/2022 11:07:34 09/19/2022 14:08:55 Osteoarthritis of right knee joint [id number] M17.11 Pain in ri ght hip joint [id number] M25.509 [id number] JAMEL Lafleur [facility] [place] [address] [place] [address] 11/26/2022 13:39:17 11/26/2022 14:35:48 Osteoarthritis of left knee joint [id number] 54555 M17.12 [id number] JAMEL Lafleur [facility] [place] [address] [place] [address] 05/20/2023 13:52:30 05/20/2023 16:11:07 Pain of right knee joint [id number] 46410 M25.561 Pain of le ft shoulder joint [id number] M25.046 [id number] JAMEL Lafleur [facility] [place] [address] [place] [address] 06/22/2023 14:43:13 06/22/2023 16:28:23 Pain of left shoulder joint [id number] M25.512 Health Concerns Section Related Observation LastModified by Organization Detai ls LastModified Time None Recorded Concern Status LastModified by Organization Details LastModified Time None Recorded Advance Directives Directive None Recorded Payers Encounter Date Sequence Insurance Name Policy Number Policy Ivory Covered Member ID Ivory Member ID Guarantor Name 09/19/2022 1 [place] Mars Ramirez [id number] Mars Ramirez 09/19/2022 2 [facility] [facility] (MEDICARE SUPPLEMENT) Mars Ramirez [id number] Mars Ramirez 11/26/2022 1 [place] Ramirez [id number] Mars Ramirez 11/26/2022 2 [employer] [facility] (MEDICARE SUPPLEMENT) Mars Ramirez [id number] Mars Ramirez 05/20/2023 1 [place] Ramirez [id number] Mars Ramirez 05/20/2023 2 [employer] [facility] (MEDICARE SUPPLEMENT) Mars Ramirez [id number] Mars Ramirez 06/22/2023 1 [place] Ramirez [id number] Mars Ramirez 06/22/2023 2 [employer] - [facility] (MEDICARE SUPPLEMENT) Mars Ramirez [id number] Mars Ramirez
== END 2024-05-25 13:48 | disposition home or self-care (01) ==
PROVIDERS: Visit Provider Physician Assistant Surgical
DX: M19.011 Primary osteoarthritis, right shoulder (principal)
CPT/HCPCS: 20610; 77002; Q9966